=== PATIENT | female | born 1970 | race Native Hawaiian/Other Pacific Islander ===

== ENCOUNTER 2021-10-09 10:44 | Outpatient (CLI) | payer BC | END 2021-10-09 19:35 | disposition home or self-care (01) | LOC: MAMMO 10:44 | PROVIDERS: ATTEND Obstetrics & Gynecology | DX: N60.11 Diffuse cystic mastopathy of right breast (principal); N60.12 Diffuse cystic mastopathy of left breast | CPT/HCPCS: G0279 ==

== ENCOUNTER 2023-02-21 14:54 | Outpatient (CLI) | payer OTHER | END 2023-02-21 21:58 | disposition home or self-care (01) | LOC: MRI 14:54 | PROVIDERS: ATTEND Physician Assistant | DX: M75.121 Complete rotator cuff tear or rupture of right shoulder, not specified as traumatic (principal); S42.254A Nondisplaced fracture of greater tuberosity of right humerus, initial encounter for closed fracture; M50.21 Other cervical disc displacement, high cervical region; Y92.89 Other specified places as the place of occurrence of the external cause ==